=== PATIENT | male | born 1995 | race American Indian/Alaskan Native ===

== ENCOUNTER 2016-05-06 02:59 | Emergency (ER) | payer SELFPAY ==
[2016-05-06 04:09] LABS: Basophils % (Auto) 0.5 % (0.0-1.8); Eosinophils % (Auto) 3.3 % (0.0-4.3); Hematocrit 43.9 % (35.5-45.6); Hemoglobin 14.8 gm/dl (11.8-15.2); Mean Corpuscular HGB Conc 34 % (32-34); Mean Corpuscular Hemoglobin 30 pg (28-32); Mean Corpuscular Volume 89 fl (84-94); Platelet Count 272 K/mm3 (140-440); Red Blood Count 4.95 M/mm3 (3.65-5.03); Red Cell Distribution Width 13.5 % (13.2-15.2); White Blood Count 7.4 K/mm3 (4.5-11.0)
[2016-05-06 04:30] LABS: Blood Urea Nitrogen 15 mg/dL (9-20); Carbon Dioxide 23 mmol/L (22-30); Chloride 98.4 mmol/L (98-107); Glucose 94 mg/dL (75-100); Potassium 3.8 mmol/L (3.6-5.0); Sodium 138 mmol/L (137-145)
[2016-05-06 04:31] LABS: Anion Gap 20 mmol/L
--- NOTE | 2016-05-06 07:52 | Emergency Department Report ---
ED Chest Pain HPI - General Chief Complaint: Chest Pain Stated Complaint: NATHANIEL/CHEST PAIN Time Seen by Provider: 05/06/16 07:50 Source: patient Mode of arrival: Ambulatory Limitations: No Limitations - History of Present Illness Initial Comments: The patient is a 20-year-old male that denies any substance abuse. He states that he has been to the emergency department while once in the past 6 months 4 episodes of deep breathing. He has been admitted to [facility] for "depression". He states he has these episodes of deep breathing which she knows may be associated with anxiety. At times he has a very nondescript chest pain which is nonpleuritic and nonradiating. He states he has been doing this "deep breathing" today. He sometimes has a funny feeling in his throat. He denies syncope or presyncope. He denies cough and doesn't actually have shortness of breath. He denies difficulty dyspnea on exertion. He's never got to a primary care physician or state federal relations deputy director for further evaluation. Had no recent fever or chills. He denies any recent travel or sedentary positioning. MD Complaint: chest pain -: month(s) Onset: during rest Pain Location: left chest Pain Radiation: none Severity: moderate Quality: other (didn't describe) Consistency: now resolved Improves With: nothing Worsens With: nothing re: dyspnea (as above described). denies: nausea, vomting, diaphoresis Other Symptoms: denies: cough, fever Treatments Prior to Arrival: none Aspirin use within the Past 7 Days: (0) No - Related Data Home Medications Medication Instructions Recorded Confirmed Last Taken No Known Home Medications [No 05/06/16 05/06/16 Unknown Reported Home Medications] Allergies Allergy/AdvReac Type Severity Reaction Status Date / Time No Known Allergies Allergy Verified 05/06/16 03:21 PIPER score - Piper Score Age > 65: (0) No Aspirin use within the Past 7 Days: (0) No 3 or more CAD Risk Factors: (0) No 2 or more Angina events in past 24 hrs: (0) No Known CAD with more than 50% Stenosis: (0) No Elevated Cardiac Markers: (0) No ST Deviation Greater than 0.5mm: (0) No PIPER Score: 0 ED Review of Systems ROS: Stated complaint: NATHANIEL/CHEST PAIN Other details as noted in HPI Constitutional: denies: chills, fever Eyes: denies: eye pain, eye discharge, vision change ENT: denies: ear pain, throat pain Respiratory: no symptoms reported. denies: cough, wheezing Cardiovascular: denies: palpitations Endocrine: no symptoms reported Gastrointestinal: denies: abdominal pain, nausea, diarrhea Genitourinary: denies: urgency, dysuria Musculoskeletal: denies: back pain, joint swelling, arthralgia Skin: denies: rash, lesions Neurological: denies: headache, weakness, paresthesias Psychiatric: anxiety. denies: depression Hematological/Lymphatic: denies: easy bleeding, easy bruising ED Past Medical Hx - Past Medical History Previous Medical History?: No - Social History Smoking Status: Current Some Day Smoker - Medications Home Medications: Home Medications Medication Instructions Recorded Confirmed Last Taken Type No Known Home Medications [No 05/06/16 05/06/16 Unknown History Reported Home Medications] ED Physical Exam - General Limitations: No Limitations General appearance: alert, in no apparent distress - Head Head exam: Present: atraumatic, normocephalic - Eye Eye exam: Present: normal appearance, PERRL, EOMI. Absent: scleral icterus - ENT ENT exam: Present: mucous membranes moist - Neck Neck exam: Present: normal inspection - Respiratory Respiratory exam: Present: normal lung sounds bilaterally. Absent: respiratory distress - Cardiovascular Cardiovascular Exam: Present: regular rate, normal rhythm. Absent: systolic murmur, diastolic murmur, rubs, gallop - GI/Abdominal GI/Abdominal exam: Present: soft, normal bowel sounds. Absent: distended, tenderness, guarding, rebound, rigid - Rectal Rectal exam: Present: deferred - Extremities Exam Extremities exam: Present: normal inspection, normal capillary refill. Absent: pedal edema, joint swelling, calf tenderness - Back Exam Back exam: Present: normal inspection - Neurological Exam Neurological exam: Present: alert, oriented X3, CN II-XII intact. Absent: motor sensory deficit - Psychiatric Psychiatric exam: Present: normal affect, normal mood - Skin Skin exam: Present: warm, dry, intact, other (many tattoos). Absent: rash ED Course Vital Signs 05/06/16 05/06/16 05/06/16 03:10 08:10 08:11 Temperature 98.0 F Pulse Rate 104 H 89 Respiratory 20 18 18 Rate Blood Pressure 123/85 Blood Pressure 119/76 [Left] O2 Sat by Pulse 100 100 100 Oximetry - Reevaluation(s) Reevaluation #1: Patient remained stable in the emergency department. He spent the entire time in the rgreig with his girlfriend. His pulse oximetry was 100%. Never produced a urine specimen. He is discharged stable addition. I encouraged him to follow up with a state federal relations deputy director. I would recommend an echocardiogram. Patient stated that he needed a psychiatric referral as well. He is not homicidal suicidal or having any acute psychiatric decompensation. He will be referred to [facility]. 05/06/16 10:40 ED Medical Decision Making - Lab Data Result diagrams: 05/06/16 03:47 05/06/16 03:47 Laboratory Results - last 24 hr 05/06/16 05/06/16 03:47 03:47 WBC 7.4 RBC 4.95 Hgb 14.8 Hct 43.9 MCV 89 MCH 30 MCHC 34 RDW 13.5 Plt Count 272 Lymph % (Auto) 25.4 Rush % (Auto) 14.0 H Eos % (Auto) 3.3 Baso % (Auto) 0.5 Lymph # 1.9 Rush # 1.0 H Eos # 0.2 Baso # 0.0 Seg Neutrophils % 56.8 Seg Neutrophils # 4.2 Sodium 138 Potassium 3.8 Chloride 98.4 Carbon Dioxide 23 Anion Gap 20 BUN 15 Creatinine 1.0 Estimated GFR > 60 BUN/Creatinine Ratio 15.00 Glucose 94 Calcium 10.0 Troponin T < 0.010 Laboratory Results - last 24 hr 05/06/16 05/06/16 05/06/16 03:47 03:47 07:07 WBC 7.4 RBC 4.95 Hgb 14.8 Hct 43.9 MCV 89 MCH 30 MCHC 34 RDW 13.5 Plt Count 272 Lymph % (Auto) 25.4 Rush % (Auto) 14.0 H Eos % (Auto) 3.3 Baso % (Auto) 0.5 Lymph # 1.9 Rush # 1.0 H Eos # 0.2 Baso # 0.0 Seg Neutrophils % 56.8 Seg Neutrophils # 4.2 PT INR APTT Sodium 138 Potassium 3.8 Chloride 98.4 Carbon Dioxide 23 Anion Gap 20 BUN 15 Creatinine 1.0 Estimated GFR > 60 BUN/Creatinine Ratio 15.00 Glucose 94 Calcium 10.0 Magnesium Total Bilirubin Direct Bilirubin Indirect Bilirubin AST ALT Alkaline Phosphatase Troponin T < 0.010 < 0.010 NT-Pro-B Natriuret Pep Total Protein Albumin Albumin/Globulin Ratio TSH 05/06/16 05/06/16 05/06/16 09:18 09:18 09:18 WBC RBC Hgb Hct MCV MCH MCHC RDW Plt Count Lymph % (Auto) Rush % (Auto) Eos % (Auto) Baso % (Auto) Lymph # Rush # Eos # Baso # Seg Neutrophils % Seg Neutrophils # PT 14.5 INR 1.14 H APTT 27.7 Sodium Potassium Chloride Carbon Dioxide Anion Gap BUN Creatinine Estimated GFR BUN/Creatinine Ratio Glucose Calcium Magnesium 2.2 Total Bilirubin 0.7 Direct Bilirubin < 0.2 Indirect Bilirubin 0.5 AST 14 ALT 10 Alkaline Phosphatase 48 Troponin T < 0.010 NT-Pro-B Natriuret Pep 48.73 Total Protein 7.4 Albumin 4.6 Albumin/Globulin Ratio 1.6 TSH 05/06/16 09:18 WBC RBC Hgb Hct MCV MCH MCHC RDW Plt Count Lymph % (Auto) Rush % (Auto) Eos % (Auto) Baso % (Auto) Lymph # Rush # Eos # Baso # Seg Neutrophils % Seg Neutrophils # PT INR APTT Sodium Potassium Chloride Carbon Dioxide Anion Gap BUN Creatinine Estimated GFR BUN/Creatinine Ratio Glucose Calcium Magnesium Total Bilirubin Direct Bilirubin Indirect Bilirubin AST ALT Alkaline Phosphatase Troponin T NT-Pro-B Natriuret Pep Total Protein Albumin Albumin/Globulin Ratio TSH 2.600 - EKG Data -: EKG Interpreted by Me EKG shows normal: sinus rhythm, axis, intervals, QRS complexes, ST-T waves Rate: tachycardia - Radiology Data interpreted by me: Chest x-ray shows no acute process Critical care attestation.: If time is entered above; I have spent that time in minutes in the direct care of this critically ill patient, excluding procedure time. ED Disposition Clinical Impression: Atypical chest pain Anxiety disorder Qualifiers: Anxiety disorder type: unspecified anxiety disorder Qualified Code(s): F41.9 - Anxiety disorder, unspecified Disposition: DISCHARGED TO HOME OR SELFCARE Is pt being admited?: No Does the pt Need Aspirin: No Condition: Stable Instructions: Chest Pain (ED), Anxiety (ED) Additional Instructions: Return as needed any acute change or worsening. I would consider the value of having an echocardiogram done at a state federal relations deputy director's office. I'm going to give her referral for that. I'm going to give information about a primary care clinic as well as [facility]. Return as needed. Referrals: PRIMARY CAREMD [Primary Care Provider] - 3-5 Days [facility] [Provider Group] - 3-5 Days [facility] [Outside] - 3-5 Days MICHELLE BETHEA MD [Staff Physician] - 3-5 Days Time of Disposition: 10:42
--- NOTE | 2016-05-06 09:10 | XRay Report ---
CHEST TWO VIEWS: 05/06/16 02:59:00 CLINICAL: Shortness of breath. COMPARISON: None FINDINGS: Normal heart and pulmonary vasculature. The lungs are normally expanded and clear. The bones and soft tissues are normal. IMPRESSION: Normal chest.
[2016-05-06 09:52] LABS: INR 1.14 (0.87-1.13)
[2016-05-06 09:53] LABS: Partial Thromboplastin Time 27.7 Sec. (24.2-36.6)
[2016-05-06 10:03] LABS: Alanine Aminotransferase 10 units/L (7-56); Albumin 4.6 g/dL (3.9-5); Albumin/Globulin Ratio 1.6 %; Alkaline Phosphatase 48 units/L (35-129); Bilirubin,Total 0.7 mg/dL (0.1-1.2); Magnesium 2.2 mg/dL (1.7-2.3); Total Protein 7.4 g/dL (6.3-8.2)
[2016-05-06 10:08] LABS: Bilirubin,Direct < 0.2 mg/dL (0-0.2); Bilirubin,Indirect 0.5 mg/dL
[2016-05-06 10:21] LABS: Urine Drugs of Abuse Note Disclamer
[2016-05-06 10:40] LABS: Bacteria,Urine 2+ /HPF (Negative); Bilirubin,Urine NEG (Negative); Blood,Urine NEG (Negative); Ketones,Urine NEG (Negative); Leukocyte Esterase,Urine NEG (Negative); Mucus,Urine 3+ /HPF; Nitrite,Urine NEG (Negative); Protein,Urine <15 mg/dL mg/dL (Negative); WBC,Urine < 1.0 /HPF (0.0-6.0)
[2016-05-06 10:55] VITALS: BP 131/74
== END 2016-05-06 10:46 | disposition home or self-care (01) ==
LOC: ED 02:59
DX: F41.9 Anxiety disorder, unspecified (principal); R07.89 Other chest pain; F17.200 Nicotine dependence, unspecified, uncomplicated
CPT/HCPCS: 36415; 71020; 80048; 80074; 80307; 81001; 83735; 83880; 84439; 84443; 84484; 85025; 85379; 85610; 85730; 93005; 93010

== ENCOUNTER 2016-11-13 17:24 | Emergency (ER) | payer SELFPAY ==
[2016-11-13] MEDS ORDERED: FLEXERIL PO ONE (20:41)
[2016-11-13] MEDS ORDERED: MOTRIN PO ONE (20:42)
[2016-11-13 20:44] VITALS: BP 120/70
--- NOTE | 2016-11-13 21:29 | Cat Scan Report ---
FINAL REPORT PROCEDURE: CT HEAD/BRAIN WO CON TECHNIQUE: Computerized tomography of the head was performed without contrast material. HISTORY: FALL/PAIN COMPARISON: No prior studies are available for comparison. FINDINGS: Skull and scalp: Normal. Paranasal sinuses: Normal. Ventricles and subarachnoid spaces: 1.5 centimeter focal CSF containing area in the right inferior anterior middle cranial fossa temporal lobe area may reflect small right arachnoid cyst. Cerebrum: No evidence of hemorrhage, acute infarction or mass . Cerebellum and brainstem: No evidence of hemorrhage, acute infarction or mass. Vasculature: Normal. Comments: None. IMPRESSION: No acute intracranial bleed or skull fracture seen
--- NOTE | 2016-11-13 21:47 | Cat Scan Report ---
FINAL REPORT PROCEDURE: CT FACIAL BONES WO CON TECHNIQUE: Computerized tomography of the facial bones and soft tissues with axial and coronal sections performed from the cranial aspect of the frontal sinuses to the caudal portion of the mandible without contrast material. HISTORY: FALL/PAIN COMPARISON: No prior studies are available for comparison. FINDINGS: Bones: Left nasal septal deviation with spur. No definite acute fracture Paranasal sinuses: Clear. Soft tissues: No significant abnormality. Other: None. IMPRESSION: No definite evidence of acute fracture seen at this time
--- NOTE | 2016-11-13 21:51 | Emergency Department Report ---
HPI - General Chief Complaint: Fall Time Seen by Provider: 11/13/16 20:39 - HPI HPI: This is a 21-year-old female presents to ED complaining of generalized body aches and pains for the past 2 days. Patient states he was helping move furniture down the stairs when he fell and hit his chest and head and arm on the furniture while he fell down the patient states he fell down about 16 stairs. Patient complains of left sided chest pain as painful when he takes a deep breath. Patient also complains of generalized body aches. He denies fevers/chills/nausea/vomiting/abdominal pain or any other problems. ED Past Medical Hx - Past Medical History Previous Medical History?: Yes Hx Psychiatric Treatment: Yes (anxiety, sleep apnea) - Surgical History Past Surgical History?: No - Social History Smoking Status: Smoker, Current Status Unknown Substance Use Type: Alcohol - Medications Home Medications: Home Medications Medication Instructions Recorded Confirmed Last Taken Type Cyclobenzaprine [Flexeril] 10 mg PO QHS PRN #24 tablet 11/13/16 Unknown Rx Ibuprofen [Motrin] 800 mg PO Q8HR PRN #40 tablet 11/13/16 Unknown Rx ED Review of Systems ROS: Stated complaint: FALL/CHEST PAIN/FATIGUE/NAUSEA Other details as noted in HPI Physical Exam - Physical Exam Vital Signs: Vital Signs 11/13/16 17:31 Temperature 97.8 F Pulse Rate 80 Respiratory 16 Rate Blood Pressure 121/78 O2 Sat by Pulse 100 Oximetry Physical Exam: GENERAL: Alert and oriented x3, no apparent distress, Normal Gait, atraumatic. HEAD: Head is normocephalic and a-traumatic. EYES: Extra ocular muscles are intact. Pupils are equal, round, and reactive to light and accommodation. MOUTH:Mouth is well hydrated and without lesions. Tonsils nonerythematous or swollen, Uvula midline, Tongue not elevated. Mucous membranes are moist. Posterior pharynx clear, no exudate or lesions. Patent airways. NECK: Supple. Non edematous, No lymphadenopathy or thyromegaly. No C-spine tenderness LUNGS: Symetrical with respiration, No wheezing, no rales or crackles, CTAB. HEART: S1, S2 present, regular rate and rhythm without murmur, no rubs, no gallops. Mild tenderness to palpationof right chest and left lower. ABDOMEN: No organomegaly was noted,Positive bowel sounds, soft, and non- distended. . Nontender to palpation on all Quadrants, NO CVA tenderness. EXTREMITIES/MUSCULOSKELETAL: No cyanosis, clubbing, rash, lesions or edema. Full ROM bilaterally. UE/LE Pulses 2+ bilaterally. LE and UE 5+ strength bilaterally. NEUROLOGIC: The patient is cooperative with no focal neurologic deficits. Cranial nerves II through XII are grossly intact. Normal speech. SKIN: Warm and dry, No lesions, No ulceration or induration present. ED Course Vital Signs 11/13/16 17:31 Temperature 97.8 F Pulse Rate 80 Respiratory 16 Rate Blood Pressure 121/78 O2 Sat by Pulse 100 Oximetry ED Medical Decision Making - Radiology Data Radiology results: report reviewed, image reviewed FINAL REPORT EXAM: XR RIBS BILAT 3V HISTORY: CP/FALL; BILATERAL RIB PAIN TECHNIQUE: Single-view chest with additional views of the ribs. Six images PRIORS: None. FINDINGS: No pneumothorax is identified.No focal consolidations are seen in the lungs.The cardiomediastinal silhouette is within normal limits for size and contour. No acute osseous abnormality is identified. IMPRESSION: 1. No definite radiographic evidence of acute cardiopulmonary disease. 2. No displaced rib fracture is identified. Transcribed By: JYOTHI Dictated By: NICHOLE GREGORY MD Electronically Authenticated By: NICHOLE GREGORY MD Signed Date/Time: 11/13/162232 - Medical Decision Making 21-year-old male presents to ED status post fall 2 days ago ED Course: CT of the facial bones and head ordered. CT of the facial bones and brain normal. Detail x-ray ordered. x-ray normal. Discussed his findings with patient. Discussed the patient to take medication up or really as prescribed. Vital signs are normal patient has no acute distress patient is alert and oriented 3 understand all instructions given Critical care attestation.: If time is entered above; I have spent that time in minutes in the direct care of this critically ill patient, excluding procedure time. ED Disposition Clinical Impression: Fall (on) (from) other stairs and steps, initial encounter, Myalgia Disposition: DC-01 TO HOME OR SELFCARE Is pt being admited?: No Does the pt Need Aspirin: No Condition: Stable Instructions: Musculoskeletal Pain (ED), Trigger Point Pain (ED) Prescriptions: Cyclobenzaprine [Flexeril] 10 mg PO QHS PRN #24 tablet PRN Reason: Muscle Spasm Ibuprofen [Motrin] 800 mg PO Q8HR PRN #40 tablet PRN Reason: Pain Referrals: PRIMARY CAREMD [Primary Care Provider] - 3-5 Days MARY LÓPEZ MD [Referring] - 3-5 Days [facility] [Outside] - 3-5 Days [facility] [Outside] - 3-5 Days Forms: Accompanied Note, Work/School Release Form(ED) Time of Disposition: 22:45
--- NOTE | 2016-11-13 22:39 | XRay Report ---
FINAL REPORT EXAM: XR RIBS BILAT 3V HISTORY: CP/FALL; BILATERAL RIB PAIN TECHNIQUE: Single-view chest with additional views of the ribs. Six images PRIORS: None. FINDINGS: No pneumothorax is identified.No focal consolidations are seen in the lungs.The cardiomediastinal silhouette is within normal limits for size and contour. No acute osseous abnormality is identified. IMPRESSION: 1. No definite radiographic evidence of acute cardiopulmonary disease. 2. No displaced rib fracture is identified.
== END 2016-11-13 23:21 | disposition home or self-care (01) ==
LOC: ED 17:24
DX: R07.9 Chest pain, unspecified (principal); M79.1 Myalgia; F41.9 Anxiety disorder, unspecified; G47.30 Sleep apnea, unspecified; W10.8XXA Fall (on) (from) other stairs and steps, initial encounter; Y93.89 Activity, other specified; Y99.8 Other external cause status; Y92.89 Other specified places as the place of occurrence of the external cause
CPT/HCPCS: 70450; 70486; 71110